=== PATIENT | male | born 1990 | race Caucasian/White ===

== ENCOUNTER 2016-08-22 02:04 | Emergency (ER) ==
[2016-08-22] MEDS ORDERED: GI COCKTAIL PO STA (02:09)
[2016-08-22] MEDS ORDERED: DECADRON 4 MG/ML SDV IM STA (02:09)
[2016-08-22] MEDS ORDERED: PROTONIX PO STA (02:09)
--- NOTE | 2016-08-22 02:12 | ED.PDOC ---
General ED Provider: Dr. ZAINA PARSONS Chief Complaint: Non-specific Complaint Stated Complaint: Patient accidentally ingested safety person fluid, ever since hurting in the belly. Time Seen by Physician: 02:10 Primary Care Provider: JESE GARCIA Nursing and Triage Documentation Reviewed and Agree: Yes GI Complaint Exam - Abdominal Pain Complaint/Exam Onset: Gradual Symptoms Are: Still present Timing: Constant Initial Severity: Moderate Current Severity: Mild Location of Pain: Discrete, Epigastric Character: Reports: Aching, Throbbing Aggravating: Reports: Food Alleviating: Reports: None Associated Signs and Symptoms: Reports: Cough, Chest pain, Nausea. Denies: Diaphoresis, Fever, Dizziness, Back pain, Constipation, Blood in stool, Dysuria , Urinary frequency, Decreased urine output, Decreased appetite, Discharge, Vomiting, Diarrhea, Decreased activity Related History: Reports: Similar episode AAA Risk Factors: Reports: None Cardiac Risk Factors: Reports: None Testicular Torsion Risk Factors: Reports: None Surgical Obstruction Risk Factors: Reports: None Related Surgical History: Reports: None Abdominal Findings: Present: None Differential Diagnoses: Other (gastritis) Review of Systems - Review Of Systems Constitutional: Reports: Weakness Eyes: Reports: No symptoms Ears, Nose, Mouth, Throat: Reports: No symptoms Respiratory: Reports: No symptoms Cardiac: Reports: No symptoms GI: Reports: Abdominal pain : Reports: No symptoms Musculoskeletal: Reports: No symptoms Skin: Reports: No symptoms Neurological: Reports: No symptoms Endocrine: Reports: No symptoms Hematologic/Lymphatic: Reports: No symptoms All Other Systems: Reviewed and Negative Past Medical History - Past Medical History Previously Healthy: No Endocrine: Reports: None Cardiovascular: Reports: None Respiratory: Reports: None Hematological: Reports: None Gastrointestinal: Reports: None Genitourinary: Reports: None Neuro/Psych: Reports: None Musculoskeletal: Reports: None Cancer: Reports: None - Surgical History General Surgical History: Reports: Unknown - Family History Family History: Reports: Unknown - Social History Smoking Status: Current every day smoker Smoking Cessation Counseling Time: > 3 min - 10 min Hx Substance Use: No Alcohol Screening: Occasionally Physical Exam - Physical Exam Appearance: Well-appearing, No pain distress, Well-nourished Eyes: BILL, EOMI, Conjunctiva clear ENT: Ears normal, Nose normal, Oropharynx normal Respiratory: Airway patent, Breath sounds clear, Breath sounds equal, Respirations nonlabored Cardiovascular: RRR, Pulses normal, No rub, No murmur GI/: Soft, No masses, Bowel sounds normal, No Organomegaly, Tender Musculoskeletal: Normal strength, ROM intact, No edema, No calf tenderness Skin: Warm, Dry, Normal color Neurological: Sensation intact, Motor intact, Reflexes intact, Cranial nerves intact, Alert, Oriented Psychiatric: Affect appropriate, Mood appropriate Critical Care Note - Critical Care Note Total Time (mins): 0 Course - Course Orders, Labs, Meds: Orders Category Date Time Status URINE DRUG SCREEN (RAPID FOR ED) [DRUG SCREEN, URINE, LAB 08/22/16 02:12 Uncollected RAPID] Stat Dexamethasone 4 mg/ml Inj [Decadron 4 mg/ml Sdv] MEDS 08/22/16 02:09 Stat 4 mg IM ONCE STA Mag-Al Plus//Lidocaine [Gi Cocktail] MEDS 08/22/16 02:09 Stat 30 ml PO ONCE STA Pantoprazole Sodium [Protonix] MEDS 08/22/16 02:09 Stat 40 mg PO ONCE STA CHEST, 2 VIEWS PA & LAT Stat RADS 08/22/16 02:09 Ordered Medications Discontinued Medications Generic Name Dose Route Start Last Admin Trade Name Freq PRN Reason Stop Dose Admin Al Hydroxide/Mg Hydroxide 30 ml 08/22/16 02:09 Gi Cocktail PO 08/22/16 02:10 ONCE STA Dexamethasone Sodium Phosphate 4 mg 08/22/16 02:09 Decadron 4 Mg/Ml Sdv IM 08/22/16 02:10 ONCE STA Pantoprazole Sodium 40 mg 08/22/16 02:09 Protonix PO 08/22/16 02:10 ONCE STA Departure - Departure Time of Disposition: 03:00 Disposition: HOME SELF-CARE Discharge Problem: General symptom Gastritis Qualifiers: Gastritis type: other gastritis Chronicity: acute Gastritis bleeding: without bleeding Qualifier Code: (K29.00) Acute gastritis without bleeding Instructions: Gastritis (ED) Condition: Stable Pt referred to PMD for follow-up: Yes Additional Instructions: increase hydration zantac 150 po bid carafate 1 gram achs. Prescriptions: Ranitidine HCl [Zantac] 150 mg PO BIDAC #20 tablet Sucralfate Susp [Carafate] 1 gm PO ACHS #1 bottle Allergies/Adverse Reactions: Allergies codeine Adverse Reaction (Verified 12/22/15 18:23) Sulfa (Sulfonamide Antibiotics) Adverse Reaction (Verified 12/22/15 18:22) Home Medications: Ambulatory Orders Dextroamphetamine/Amphetamine [Adderall 30 mg Tablet] 1 tab PO BID 12/22/15 Quetiapine Fumarate [Seroquel] 300 mg PO BEDTIME 12/22/15 Ranitidine HCl [Zantac] 300 mg PO PRN PRN 12/22/15 Dextroamphetamine/Amphetamine [Adderall 30 Mg Tablet] 30 mg PO 1@6am&11am #60 12/30/15 Dextroamphetamine/Amphetamine [Adderall 30 Mg Tablet] 30 mg PO BID #60 Quetiapine Fumarate [Seroquel] 400 mg PO BEDTIME #30 04/05/16 Ranitidine HCl [Zantac] 150 mg PO BIDAC #20 tablet 08/22/16 Sucralfate Susp [Carafate] 1 gm PO ACHS #1 bottle 08/22/16 Disposition Discussed With: Patient, Family
[2016-08-22 02:22] VITALS: BP 117/74; TEMP 98.7; BMI 29.7
[2016-08-22 04:03] LABS: COCAIN SCREEN,URINE NEGATIVE (NEGATIVE)
--- NOTE | 2016-08-22 05:58 | DI ---
EXAM: Chest two views HISTORY: Cough FINDINGS: Normal cardiac and mediastinal contours. Normal pulmonary vasculature. Lungs are clear. No significant abnormality of the bony thorax. IMPRESSION: Chest radiograph within normal limits.
== END 2016-08-22 05:00 | disposition home or self-care (01) ==
LOC: ED 02:04
DX: T52.0X1A Toxic effect of petroleum products, accidental (unintentional), initial encounter (principal); K29.00 Acute gastritis without bleeding; R05 Cough; R07.9 Chest pain, unspecified; R53.1 Weakness; F17.210 Nicotine dependence, cigarettes, uncomplicated; Z79.899 Other long term (current) drug therapy
CPT/HCPCS: 80306; 96372; 99283

== ENCOUNTER 2017-09-29 20:09 | Emergency (ER) ==
--- NOTE | 2017-09-29 20:14 | ED.PDOC ---
General ED Provider: Dr. ALEXANDRA SMILEY-ER Chief Complaint: Toe Pain/Injury Stated Complaint: he stubbed his toe Time Seen by Physician: 20:12 Mode of Arrival: Walk-In Information Source: Patient Primary Care Provider: JESE YOUNG Nursing and Triage Documentation Reviewed and Agree: Yes Reviewed sepsis parameters & appropriate labs ordered?: Yes System Inflammatory Response Syndrome: Not Applicable Sepsis Protocol: For patient's 13 years and over: Temp is 96.8 and below OR 101 and greater Pulse >90 BPM Resp >20/minute Acutely Altered Mental Status Are patient's symptoms suggestive of a new infection, such as: -Pneumonia -Skin, Soft Tissue -Endocarditis -UTI -Bone, Joint Infection -Implantable Device -Acute Abdominal Infection -Wound Infection -Meningitis -Blood Stream Catheter Infection -Unknown Musculoskeletal Complaint Exam - Ankle/Foot Complaint/Exam Location of Injury: Reports: Right, Toe #5 Mechanism of Injury: Reports: Trauma Onset/Duration: today Symptoms Are: Reports: Still present Onset of Pain: Reports: Immediate Initial Severity: Mild Current Severity: Mild Location: Reports: Discrete (righ foot) Character: Reports: Dull Aggravating: Reports: Movement, Weight bearing, Prolonged standing Able to Bear Weight: Yes Associated Signs and Symptoms: Reports: Swelling, Bruising Gout Risk Factors: Reports: None Lower Extremity Findings: Present: Swelling, Ecchymosis Limited Range of Motion: Present: Eversion, Dorsiflexion, Plantarflexion Differential Diagnosis: Contusion, Closed Fracture, Sprain, Strain Review of Systems - Review Of Systems Constitutional: Reports: No symptoms Eyes: Reports: No symptoms Ears, Nose, Mouth, Throat: Reports: No symptoms Respiratory: Reports: No symptoms Cardiac: Reports: No symptoms GI: Reports: No symptoms : Reports: No symptoms Musculoskeletal: Reports: Joint pain Skin: Reports: No symptoms Neurological: Reports: No symptoms Endocrine: Reports: No symptoms Hematologic/Lymphatic: Reports: No symptoms All Other Systems: Reviewed and Negative Past Medical History - Past Medical History Previously Healthy: No Endocrine: Reports: None Cardiovascular: Reports: None Respiratory: Reports: None Hematological: Reports: None Gastrointestinal: Reports: None Genitourinary: Reports: None Neuro/Psych: Reports: None Musculoskeletal: Reports: None Cancer: Reports: None - Surgical History General Surgical History: Reports: Unknown - Family History Family History: Reports: Unknown - Social History Smoking Status: Current every day smoker Hx Substance Use: No Alcohol Screening: Occasionally Physical Exam - Physical Exam Appearance: Well-appearing, No pain distress, Well-nourished Pain Distress: Mild Eyes: BILL, EOMI, Conjunctiva clear ENT: Ears normal, Nose normal, Oropharynx normal Neck: Supple Respiratory: Airway patent, Breath sounds clear, Breath sounds equal, Respirations nonlabored Cardiovascular: RRR, Pulses normal, No rub, No murmur GI/: Soft, Nontender, No masses, Bowel sounds normal, No Organomegaly Musculoskeletal: Limited ROM Skin: Warm, Dry, Normal color Neurological: Sensation intact, Motor intact, Reflexes intact, Cranial nerves intact, Alert, Oriented Psychiatric: Affect appropriate, Mood appropriate Interpretation - Radiology Interpretation Radiology Interpretation By: Radiologist Radiology Results: Negative Critical Care Note - Critical Care Note Total Time (mins): 0 Course - Course Orders, Labs, Meds: Orders Category Date Time Status TOE(S), RIGHT MIN 2V Stat RADS 09/29/17 20:11 Completed Vital Signs: Temp Pulse Resp BP Pulse Ox 09/29/17 20:11 97.4 F L 86 20 145/82 H 96 Departure - Departure Time of Disposition: 20:53 Disposition: HOME SELF-CARE Discharge Problem: Injury of toe Instructions: Foot Contusion (ED) Condition: Good Pt referred to PMD for follow-up: Yes IPMP verified?: No Additional Instructions: motrin for pain==ice and elevation--f/u with dr young if any problems Allergies/Adverse Reactions: Allergies codeine Adverse Reaction (Verified 09/29/17 20:18) Sulfa (Sulfonamide Antibiotics) Adverse Reaction (Verified 09/29/17 20:18) Home Medications: Ambulatory Orders Dextroamphetamine/Amphetamine [Adderall 30 mg Tablet] 1 tab PO BID 12/22/15 Ranitidine HCl [Zantac] 300 mg PO DAILY PRN 12/22/15 Quetiapine Fumarate [Seroquel] 400 mg PO BEDTIME #30 04/05/16 Montelukast Sodium [Singulair] 10 mg PO DAILY 09/29/17 Disposition Discussed With: Patient, Family
[2017-09-29 20:16] VITALS: BP 145/82; TEMP 97.4; BMI 30.7
--- NOTE | 2017-09-29 20:47 | DI ---
EXAM: Three views of the toes of the right foot HISTORY: Injury to the right fifth toe TECHNIQUE: AP lateral, oblique views of the toes of the right foot were obtained. FINDINGS: No acute fractures are seen. There is anatomic alignment. There is soft tissue swelling seen along the fifth toe. There are no erosions. No radiopaque foreign bodies are seen. IMPRESSION: There is soft tissue swelling seen along the fifth toe without acute fracture dislocatio n.
== END 2017-09-29 21:07 | disposition home or self-care (01) ==
LOC: ED 20:09
DX: S90.121A Contusion of right lesser toe(s) without damage to nail, initial encounter (principal); W22.8XXA Striking against or struck by other objects, initial encounter; F17.210 Nicotine dependence, cigarettes, uncomplicated
CPT/HCPCS: 99282

== ENCOUNTER 2018-01-10 17:21 | Emergency (ER) ==
[2018-01-10 17:25] VITALS: BP 124/70; TEMP 99.7; BMI 28.9
--- NOTE | 2018-01-10 17:55 | ED.PDOC ---
General ED Provider: Dr. MATHEW SAVAGE Chief Complaint: Back Pain Stated Complaint: flank pain, dysuria Time Seen by Physician: 17:30 (seen with kwasi at all times ) Mode of Arrival: Walk-In Information Source: Patient Exam Limitations: No limitations Primary Care Provider: JESE GARCIA Nursing and Triage Documentation Reviewed and Agree: Yes Does patient meet sepsis criteria?: No System Inflammatory Response Syndrome: Not Applicable Sepsis Protocol: For patient's 13 years and over: Temp is 96.8 and below OR 101 and greater Pulse >90 BPM Resp >20/minute Acutely Altered Mental Status Are patient's symptoms suggestive of a new infection, such as: -Pneumonia -Skin, Soft Tissue -Endocarditis -UTI -Bone, Joint Infection -Implantable Device -Acute Abdominal Infection -Wound Infection -Meningitis -Blood Stream Catheter Infection -Unknown Complaint Exam - Complaint/Exam Patient Complains of: Reports: Dysuria Onset/Duration: 4 days Symptoms Are: Still present Episodes of Voiding Over Last 12 Hours: 4 Initial Severity: Mild Current Severity: Mild Location of Pain: Reports: Right, Left, Flank, Penis Character: Reports: Burning, Dull Aggravating: Reports: None Alleviating: Reports: None Associated Signs and Symptoms: Reports: Dysuria. Denies: Diaphoresis, Back pain , Fever, Hematuria, Constipation, Blood in stool, Rectal pain, Appetite change, Nausea, Vomiting, Penile swelling, Penile discharge, Decreased urine output, Increased urine frequency, Increased thirst, Decreased activity, Lethargy, Scrotal pain, Scrotal swelling, Abdominal Pain Testicular Torsion Risk Factors: Reports: None Surgical Obstruction Risk Factors: Reports: None Related Surgical History: Reports: None Abdominal Findings: Present: None Differential Diagnoses: UTI Review of Systems - Review Of Systems Constitutional: Reports: No symptoms Eyes: Reports: No symptoms Ears, Nose, Mouth, Throat: Reports: No symptoms Respiratory: Reports: No symptoms Cardiac: Reports: No symptoms GI: Reports: No symptoms : Reports: Dysuria Musculoskeletal: Reports: No symptoms Skin: Reports: No symptoms Neurological: Reports: No symptoms Endocrine: Reports: No symptoms Hematologic/Lymphatic: Reports: No symptoms All Other Systems: Reviewed and Negative Past Medical History - Past Medical History Previously Healthy: No Endocrine: Reports: None Cardiovascular: Reports: None Respiratory: Reports: None Hematological: Reports: None Gastrointestinal: Reports: None Genitourinary: Reports: None Neuro/Psych: Reports: None Musculoskeletal: Reports: None Cancer: Reports: None - Surgical History General Surgical History: Reports: Unknown - Family History Family History: Reports: Unknown - Social History Smoking Status: Current every day smoker Hx Substance Use: No Alcohol Screening: Occasionally Physical Exam - Physical Exam Appearance: Well-appearing, No pain distress, Well-nourished Eyes: BILL, EOMI, Conjunctiva clear ENT: Ears normal, Nose normal, Oropharynx normal Respiratory: Airway patent, Breath sounds clear, Breath sounds equal, Respirations nonlabored Cardiovascular: RRR, Pulses normal, No rub, No murmur GI/: Soft, Nontender, No masses, Bowel sounds normal, No Organomegaly Musculoskeletal: Normal strength, ROM intact, No edema, No calf tenderness Skin: Warm, Dry, Normal color Neurological: Sensation intact, Motor intact, Reflexes intact, Cranial nerves intact, Alert, Oriented Psychiatric: Affect appropriate, Mood appropriate Critical Care Note - Critical Care Note Total Time (mins): 0 Course - Course Hematology/Chemistry: 01/10/18 17:45 01/10/18 17:45 Orders, Labs, Meds: Lab Review 01/10/18 01/10/18 01/10/18 17:45 17:45 17:55 WBC 12.90 H RBC 4.60 L Hgb 13.3 L Hct 38.5 L MCV 83.7 MCH 28.9 MCHC 34.5 RDW Coeff of [place] 11.7 Plt Count 234 Immature Gran % (Auto) 0.3 Neut % (Auto) 70.5 Lymph % (Auto) 19.3 [place] % (Auto) 9.1 Eos % (Auto) 0.6 Baso % (Auto) 0.2 Immature Gran # (Auto) 0.0 Neut # (Auto) 9.1 H Lymph # (Auto) 2.5 [place] # (Auto) 1.2 Eos # (Auto) 0.1 Baso # (Auto) 0.0 Sodium 139 Potassium 4.0 Chloride 104 Carbon Dioxide 27 Anion Gap 12.0 BUN 10 Creatinine 0.99 Estimated GFR (MDRD) 92.00 BUN/Creatinine Ratio 10.10 Glucose 110 H Calcium 9.1 Total Bilirubin 0.5 AST 12 L ALT 14 Alkaline Phosphatase 58 Total Protein 6.9 Albumin 3.5 Globulin 3.4 Albumin/Globulin Ratio 1.03 Urine Color Yellow Urine Clarity Clear Urine pH 6.5 Ur Specific [place] 1.025 Urine Protein Negative Urine Glucose (UA) Negative Urine Ketones Negative Urine Blood Negative Urine Nitrite Negative Urine Bilirubin Negative Urine Urobilinogen 1.0 Ur Leukocyte Esterase Trace Urine Microscopic RBC 2-5 Urine Microscopic WBC 5-10 Ur Squamous Epith Cells Not present Orders Category Date Time Status CBC W/ AUTO DIFF Stat LAB 01/10/18 17:45 Completed COMPREHENSIVE METABOLIC PANEL Stat LAB 01/10/18 17:45 Completed URINALYSIS C & S IF INDICATED Stat LAB 01/10/18 17:55 Completed URINE CULTURE Stat LAB 01/10/18 17:55 Completed Ceftriaxone Sodium [Rocephin] MEDS 01/10/18 17:56 Discontinued 1 gm IM ONCE STA Lidocaine HCl/Pf [Lidocaine HCl 1% Sdv] MEDS 01/10/18 17:56 Discontinued 2.1 ml IM ONCE STA CT ABD/PEL WO RENAL STONE PROT Stat RADS 01/10/18 17:48 Completed Medications Discontinued Medications Generic Name Dose Route Start Last Admin Trade Name Freq PRN Reason Stop Dose Admin Ceftriaxone Sodium 1 gm 01/10/18 17:56 01/10/18 18:09 Rocephin IM 01/10/18 17:57 1 gm ONCE STA Administration Lidocaine HCl 2.1 ml 01/10/18 17:56 18 18:11 Lidocaine Hcl 1% Sdv IM 01/10/18 17:57 2.1 ml ONCE STA Administration Vital Signs: Temp Pulse Resp BP Pulse Ox 01/10/18 17:21 99.7 F H 77 20 124/70 98 Departure - Departure Time of Disposition: 19:00 Disposition: HOME SELF-CARE Discharge Problem: Dysuria Instructions: Dysuria (ED) Condition: Good Pt referred to PMD for follow-up: Yes IPMP verified?: No Additional Instructions: Please call your Family Physician as soon as possible to schedule a follow-up appointment. KEFLEX 500MG ONE TABLET THREE TIMES A DAY UNTIL GONE (#21) Allergies/Adverse Reactions: Allergies codeine Adverse Reaction (Verified 01/10/18 17:26) Sulfa (Sulfonamide Antibiotics) Adverse Reaction (Verified 01/10/18 17:26) Home Medications: Ambulatory Orders Dextroamphetamine/Amphetamine [Adderall 30 mg Tablet] 1 tab PO BID 12/22/15 Ranitidine HCl [Zantac] 300 mg PO DAILY PRN 07/28/16 Quetiapine Fumarate [Seroquel] 400 mg PO BEDTIME #30 04/05/16 Montelukast Sodium [Singulair] 10 mg PO DAILY 09/29/17 Alprazolam [Xanax] 0.5 mg PO PRN PRN 01/10/18 Disposition Discussed With: Patient
[2018-01-10] MEDS ORDERED: LIDOCAINE HCL 1% SDV IM STA (17:56)
[2018-01-10] MEDS ORDERED: ROCEPHIN IM STA (17:56)
--- NOTE | 2018-01-10 18:28 | CT ---
EXAM: CT abdomen pelvis without contrast HISTORY: Flank pain COMPARISON: CT 12/22/2015 TECHNIQUE: Serial axial images of the abdomen pelvis were performed from the lung bases through the inferior pelvis without contrast. These were viewed in multiple planes. Axial scans acquired at 3 mm slice thicknesses. MPR coronal and sagittal sequence completed FINDINGS: Abdomen. Images of the lower thorax show no pulmonary infiltrate. There is no intrperitoneal free air. The l iver, spleen, pancreas, adrenal glands are unremarkable. There is no renal calculus. No obstruction of either kidney or ureter is seen. Gallbladder is contracted There is no cholelithiasis or biliary ductal dilatation seen. There is no ascites. There is no small bowel obstruction or bowel wall thi ckening. The appendix is normal. Pelvis. There is no free fluid. There is no adenopathy. No hernia is seen. Skeletal structures. There is spondylolysis both L4 and L5 levels. There is minimal anterolisthesis L5 on S1 with minimal narrowing posterior L5-S1 disc space. IMPRESSION: 1. No bowel or urinary obstruction. Appendix appears normal. 2. Solid organs to include liver, spleen, and pancreas show no acute findings. 3. There is no cholelithiasis or biliary ductal dilatation seen. 4. 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 Minimal daron rowing posterior L5 S1 disc space
== END 2018-01-10 18:36 | disposition home or self-care (01) ==
LOC: ED 17:21
DX: R30.0 Dysuria (principal); M54.9 Dorsalgia, unspecified; F17.210 Nicotine dependence, cigarettes, uncomplicated
CPT/HCPCS: 36415; 74176; 80053; 81001; 85025; 87086; 96372; 99283

== ENCOUNTER 2018-11-30 19:38 | Emergency (ER) ==
[2018-11-30 19:44] VITALS: BP 168/91; TEMP 97.9; BMI 29.9
--- NOTE | 2018-11-30 20:07 | ED.PDOC ---
General ED Provider: Dr. ALEXANDRA SMILEY-ER Chief Complaint: Hand Pain/Injury Stated Complaint: i was bowling aNd i heard something pop in my right hand and i twisted my left leg Time Seen by Physician: 20:07 Mode of Arrival: Walk-In Information Source: Patient Exam Limitations: No limitations Primary Care Provider: JESE YOUNG Nursing and Triage Documentation Reviewed and Agree: Yes Does patient meet sepsis criteria?: No System Inflammatory Response Syndrome: Not Applicable Sepsis Protocol: For patient's 13 years and over: Temp is 96.8 and below OR 101 and greater Pulse >90 BPM Resp >20/minute Acutely Altered Mental Status Are patient's symptoms suggestive of a new infection, such as: -Pneumonia -Skin, Soft Tissue -Endocarditis -UTI -Bone, Joint Infection -Implantable Device -Acute Abdominal Infection -Wound Infection -Meningitis -Blood Stream Catheter Infection -Unknown Musculoskeletal Complaint Exam - Hand/Wrist Complaint/Exam Location of Pain: Reports: Right, Hand Mechanism of Injury: Reports: No known trauma Symptoms Are: Still present Initial Severity: Mild Current Severity: Mild Location: Reports: Discrete Character: Reports: Dull, Aching Aggravating: Reports: Movement Associated Signs and Symptoms: Denies: Swelling, Redness, Bruising, Fever, Weakness, Numbness, Tingling Dominant Hand: Right Compartment Syndrome Risk Factors: Present: Pain Differential Diagnoses: Contusion, Sprain, Strain Review of Systems - Review Of Systems Constitutional: Reports: No symptoms Eyes: Reports: No symptoms Ears, Nose, Mouth, Throat: Reports: No symptoms Respiratory: Reports: No symptoms Cardiac: Reports: No symptoms GI: Reports: No symptoms : Reports: No symptoms Musculoskeletal: Reports: Muscle pain Skin: Reports: No symptoms Neurological: Reports: No symptoms Endocrine: Reports: No symptoms Hematologic/Lymphatic: Reports: No symptoms All Other Systems: Reviewed and Negative Past Medical History - Past Medical History Previously Healthy: No Endocrine: Reports: None Cardiovascular: Reports: None Respiratory: Reports: None Hematological: Reports: None Gastrointestinal: Reports: None Genitourinary: Reports: None Neuro/Psych: Reports: None Musculoskeletal: Reports: None Cancer: Reports: None - Surgical History General Surgical History: Reports: Unknown - Family History Family History: Reports: Unknown - Social History Smoking Status: Current every day smoker, Light tobacco smoker Hx Substance Use: Yes (weed) Alcohol Screening: Occasionally - Immunizations Tetanus Shot up to Date: Yes Physical Exam - Physical Exam Appearance: Well-appearing Pain Distress: Mild Eyes: BILL, EOMI, Conjunctiva clear ENT: Ears normal, Nose normal, Oropharynx normal Neck: Supple Respiratory: Airway patent, Breath sounds clear, Breath sounds equal, Respirations nonlabored Cardiovascular: RRR, Pulses normal, No rub, No murmur GI/: Soft Musculoskeletal: Normal strength, ROM intact, No edema, No calf tenderness Skin: Warm, Dry, Normal color Neurological: Sensation intact, Motor intact, Reflexes intact, Cranial nerves intact, Alert, Oriented Psychiatric: Affect appropriate, Mood appropriate Interpretation - Radiology Interpretation Radiology Interpretation By: ED Physician Radiology Results: Negative Critical Care Note - Critical Care Note Total Time (mins): 0 Course - Course Orders, Labs, Meds: Orders Category Date Time Status Hydrocodone Bit/Acetaminophen [[place] 5-325] MEDS 11/30/18 20:16 Stat 1 tab PO ONCE STA FEMUR, LEFT 2 VIEWS Stat RADS 11/30/18 19:51 Taken HAND, RIGHT 3 VIEWS Stat RADS 11/30/18 19:51 Taken HIP, LEFT 2 VIEWS Stat RADS 11/30/18 19:51 Taken Vital Signs: Temp Pulse Resp BP Pulse Ox 11/30/18 19:39 97.9 F 94 H 20 168/91 H 96 Departure - Departure Time of Disposition: 20:17 Disposition: HOME SELF-CARE Discharge Problem: Injury of hand Instructions: Hand Sprain (ED) Condition: Good Pt referred to PMD for follow-up: Yes IPMP verified?: No Additional Instructions: ice--rest---f/u with dr young Allergies/Adverse Reactions: Allergies codeine Adverse Reaction (Verified 11/30/18 19:43) Sulfa (Sulfonamide Antibiotics) Adverse Reaction (Verified 11/30/18 19:43) Home Medications: Ambulatory Orders Dextroamphetamine/Amphetamine [Adderall 30 mg Tablet] 1 tab PO BID 12/22/15 Ranitidine HCl [Zantac] 300 mg PO DAILY PRN 12/22/15 Quetiapine Fumarate [Seroquel] 400 mg PO BEDTIME #30 04/05/16 Montelukast Sodium [Singulair] 10 mg PO DAILY 09/29/17 Alprazolam [Xanax] 0.5 mg PO PRN PRN 01/10/18 Disposition Discussed With: Patient, Family
[2018-11-30] MEDS ORDERED: NORCO 5-325 PO STA (20:16)
--- NOTE | 2018-11-30 21:27 | DI ---
Exam: Three views of the right hand. Comparison: None available. Reason for exam: Pain while bowling FINDINGS: No acute fracture or malalignment. The joint spaces appear well maintained. No unexplain ed calcific soft tissue density or radiopaque retained foreign body. Impression: No acute fracture or dislocation in the right hand.
--- NOTE | 2018-11-30 21:27 | DI ---
Exam: Two views of the left hip. Comparison: CT abdomen pelvis performed 12/22/2015. Reason for exam: Injury. FINDINGS: Metallic densities are seen overlying the pelvis which limit evaluation. No acute fracture or malalignment is seen in the left hip. The left humeral head articulates with th e acetabulum. Impression: No acute fracture or dislocation in the left hip.
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
== END 2018-11-30 20:40 | disposition home or self-care (01) ==
LOC: ED 19:38
DX: S89.92XA Unspecified injury of left lower leg, initial encounter (principal); S69.91XA Unspecified injury of right wrist, hand and finger(s), initial encounter; Y93.54 Activity, bowling; F17.210 Nicotine dependence, cigarettes, uncomplicated
CPT/HCPCS: 99282